=== PATIENT | male | born 1965 | race Caucasian/White ===

== ENCOUNTER 2017-06-24 15:59 | Emergency (ER) | payer BC, OTHER ==
[~2017-06-24] VITALS: Ht 185.4 cm; Wt 86.2 kg
[2017-06-24 17:10] LABS: Basophils # (auto) 0.1 uL; Basophils % (auto) 0.5 % (0.0-2.0); Eosinophils # (auto) 0 uL; Eosinophils % (auto) 0.1 % (0.0-7.0); Hematocrit 48.1 % (41.0-53.0); Hemoglobin 16.6 g/dL (13.5-17.5); Lymphocytes # (auto) 1.6 uL; Lymphocytes % (auto) 10.9 % (10.0-50.0); Mean Corpuscular Hemoglobin 32.5 pg (28.0-32.0); Mean Corpuscular Hgb Conc. 34.6 g/dL (32.0-36.0); Mean Corpuscular Volume 94.1 fL (80.0-100.0); Mean Platelet Volume 8.5 fL (6.9-10.8); Monocytes # (auto) 1.3 uL; Monocytes % (auto) 8.9 % (0.0-12.0); Neutrophils # (auto) 11.7 uL; Neutrophils % (auto) 79.6 % (37.0-80.0); Platelet Count (auto) 188 10^3/uL (140-450); Red Cell Distribution Width 12.7 % (11.8-14.3); White Blood Cell 14.7 10^3/uL (4.4-10.8)
[2017-06-24 17:25] LABS: Albumin 4.4 g/dL (3.4-5.0); Potassium 3.2 mmol/L (3.5-5.1)
[2017-06-24 17:28] LABS: Bilirubin, Total 1.5 mg/dL (0.2-1.0); Total Protein 7.3 g/dL (6.4-8.2)
[2017-06-24] MEDS ORDERED: HYDROcodone-ACET 7.5/325MG TAB PO ONE (19:15)
[2017-06-24] MEDS ORDERED: KETOROLAC TROMETH 30 MG/ML 1ML VIAL IV ONE (19:15)
[2017-06-24 19:53] VITALS: BP 137/81
== END 2017-06-24 21:15 | disposition home or self-care (01) ==
LOC: ER 16:06
DX: S13.9XXA Sprain of joints and ligaments of unspecified parts of neck, initial encounter (principal); S00.83XA Contusion of other part of head, initial encounter; G44.319 Acute post-traumatic headache, not intractable; S29.9XXA Unspecified injury of thorax, initial encounter; W18.39XA Other fall on same level, initial encounter; Y93.89 Activity, other specified; Y92.89 Other specified places as the place of occurrence of the external cause; Y99.8 Other external cause status
CPT/HCPCS: 36415; 70450; 70486; 72125; 73700; 80053; 85025; 96374; 99285; J1885